=== PATIENT | male | born 2000 | race Two or more races ===

== ENCOUNTER 2019-09-19 15:25 | Emergency (ER) | payer MEDICAID ==
[~2019-09-19 15:25] MED LIST: ALBUTEROL2.5 MG/3 M INH; BENADRYL25 MG ORAL; CIPRODEX OTIC7.5 M1 LEFT EAR; IBUPROFEN600 M1 PO; IBUPROFEN600 MG ORAL; PREDNISONE20 MG ORAL; SINGULAIR10 MG ORAL
[2019-09-19] MEDS ORDERED: IBUPROFEN600 M1 ORAL (16:08)
== END 2019-09-19 16:21 | disposition home or self-care (01) ==
DX: M25.562 Pain in left knee (principal)
CPT/HCPCS: 73562; Z7502

== ENCOUNTER 2019-09-26 22:35 | Emergency (ER) | payer MEDICAID ==
[~2019-09-26] VITALS: Ht 185.4 cm; Wt 113.4 kg
[~2019-09-26 22:35] MED LIST changes: +IBUPROFEN600 M1 ORAL
[2019-09-26 23:00] VITALS: BP 125/79
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
[2019-09-26] MEDS ORDERED: Bacitracin Oint UD TOPIC ONE (23:15)
[2019-09-26] MEDS ORDERED: IBUPROFEN600 M1 ORAL (23:40)
[2019-09-26] MEDS ORDERED: MUPIROCIN22 GM TOPIC (23:40)
[2019-09-26 23:48] VITALS: BP 128/74
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
== END 2019-09-26 23:50 | disposition home or self-care (01) ==
LOC: EMR 23:00
DX: S60.512A Abrasion of left hand, initial encounter (principal); S60.212A Contusion of left wrist, initial encounter; S80.01XA Contusion of right knee, initial encounter; J45.909 Unspecified asthma, uncomplicated; W17.89XA Other fall from one level to another, initial encounter; Y93.I9 Activity, other involving external motion; Y92.9 Unspecified place or not applicable
CPT/HCPCS: 73110; 73130; 73562; Z7502; 99284